=== PATIENT | male | born 1955 | race Caucasian/White ===

== ENCOUNTER 2016-12-10 14:29 | Emergency (ER) | payer OTHER ==
--- NOTE | 2016-12-10 17:05 | DIAGNOSTIC IMAGING REPORT ---
PROCEDURE: CTA THORAX WITH CONTRAST INDICATION: SHORTNESS OF BREATH TECHNIQUE: 100 ml of Isovue 370 was injected intravenously and axial images were obtained of the chest with 3D sagittal and coronal MIP reconstructions. COMPARISON: None. FINDINGS: Normal opacification of the pulmonary arterial tree without filling defect. The central pulmonary arteries are normal caliber. Thoracic aorta is normal caliber with trace atherosclerotic calcification. The great vessels demonstrate a normal branching pattern. Heart size is diffusely enlarged. No pericardial effusion. Moderate superior mediastinal, AP window, subcarinal and bilateral hilar adenopathy. The esophagus is normal in caliber without hiatal hernia. The thyroid gland is normal. Moderate size bilateral pleural effusions, right greater than left. Diffuse interstitial thickening bilaterally, particularly at the lung bases. 7 mm right lateral lower lobe subpleural solid lung nodule. 4 mm right lateral upper lobe ground-glass nodule (series 5 image 43). Deformities of multiple, healed bilateral rib fractures. The images obtained of the upper abdomen demonstrate trace perihepatic ascites and retrograde opacification of the IVC and hepatic veins. IMPRESSION: 1. No pulmonary embolus. 2. Cardiomegaly, diffuse interstitial thickening, and bilateral pleural effusions consistent with CHF and interstitial edema. 3. Two right lung nodules, nonspecific. Follow-up chest CT in 3 months is recommended. 4. Findings called to the emergency room.
--- NOTE | 2016-12-10 17:07 | ED ORDER SUMMARY ---
..... Patient: ADONIS DENNIS OrderSheet [facility] VisitID: [id number] [place] [address] 61y, M Registration Date/Time: 12/10/2016 ORDER SHEET Weight: 99.7 kg (stated) Allergies: Unknown ABX GENERAL ORDERS: Chest 2V Urgent (14:35 12/10/2016 [facility]) (Ack 14:52 TBergley) (15:14 TBergley) Human Services Manager (Continuous) (14:12/10/2016 [facility] (Ack 14:52 TBergley) (14:54 JSimbeck R.N.) UA-Culture if indicated Urgent (14:12/10/2016 [facility]) (Ack 14:52 TBergley) (15:48 JSimbeck R.N.) Cardiac Panel Stat (14:12/10/2016 [facility]) (Ack 14:52 TBergley) (14:54 JSimbeck R.N.) BNP Urgent (14:12/10/2016 PHnychinson DO) (Ack 14:52 TBergley) (14:54 JSimbeck R.N.) D-Dimer Urgent (14:12/10/2016 PHnychinson DO) (Ack 14:52 TBergley) (14:54 JSimbeck R.N.) Urine Drug Screen Urgent (14:12/10/2016 PHnychinson DO) (Ack 14:52 TBergley) (15:48 JSimbeck R.N.) TSH Urgent (14:12/10/2016 PHnychinson DO) (Ack 14:52 TBergley) (14:54 JSimbeck R.N.) Ethyl Alcohol Urgent (14:12/10/2016 PHnychinson DO) (Ack 14:52 TBergley) (14:54 JSimbeck R.N.) PT with INR Urgent (14:12/10/2016 PHnychinson DO) (Ack 14:52 TBergley) (14:54 JSimbeck R.N.) Lipase Urgent (14:35 12/10/2016 PHutchinson DO) (Ack 14:52 TBergley) (14:54 JSimbeck R.N.) Pulse oximeter (14:35 12/10/2016 son DO) (14:43 JSimbeck R.N.) EKG - ER Stat (14:35 12/10/2016 PHutchinson DO) (14:43 JSimbeck R.N.) Vitals (14:35 12/10/2016 PHutchinson DO) (14:43 JSimbeck R.N.) CTA Thorax w Cont (No) (GFR>60) (elevated d-dimer; dyspnea; ) Urgent (15:46 12/10/2016 chinson DO) (Ack 15:47 TBergley) (16:23 Angela) MEDICATION ORDERS: Lovenox Subcut 100 mg (NOW) (15:17 12/10/2016 utchinson ) (16:11 JSimbeck R.N.) NitroGLYCERIN Paste Topical 1.5 in. (NOW, to CW) (15:49 12/10/2016 PHutchinson DO) (16:11 JSimbeck R.N.) NitroGLYCERIN SL 0.4 mg (NOW, w/ s/s CHF) (15:49 12/10/2016 PHutchinson DO) (16:12 JSimbeck R.N.) IV FLUIDS: IV NS : initial bolus 500 mL (1000 mL/hr), then 250 mL/hr for X2 (NOW) (14:35 12/10/2016 PHutchinson DO) (14:54 JSimbeck R.N.) Lanoxin IV 0.125 mg (NOW) (15:17 12/10/2016 PHutchinson DO) (16:12 JSimbeck R.N.) Lasix IV 40 mg (NOW) (15:17 12/10/2016 PHutchinson DO) (Cancelled: Other17:07 chinson ) Diltiazem IV 10 mg (NOW) (15:17 12/10/2016 PHutchinson DO) (16:13 JSimbeck R.N.) Diltiazem IV 10 mg (NOW) (16:31 12/10/2016 PHutchinson DO) (16:37 Olivia Tapia) ORDER SHEET NOTES: [Electronically signed by Hoang Banerjee R.N. (18:46 12/10/2016)] [Electronically signed by Jack Murray DO (19:38 12/10/2016)] [Electronically locked/signed by Hoang Banerjee R.N. (18:46 12/10/2016)]
--- NOTE | 2016-12-10 17:07 | ED ORDER SUMMARY ---
..... Patient: ADONIS DENNIS OrderSheet [facility] VisitID: [id number] [place] [address] 61y, M Registration Date/Time: 12/10/2016 ORDER SHEET Weight: 99.7 kg (stated) Allergies: Unknown ABX GENERAL ORDERS: Chest 2V Urgent (14:35 12/10/2016 [facility]) (Ack 14:52 TBergley) (15:14 TBergley) Wildlife Biologist (Continuous) (14:12/10/2016 [facility]) (Ack 14:52 TBergley) (14:54 JSimbeck R.N.) UA-Culture if indicated Urgent (14:12/10/2016 [facility]) (Ack 14:52 TBergley) (15:48 JSimbeck R.N.) Cardiac Panel Stat (14:12/10/2016 [facility]) (Ack 14:52 TBergley) (14:54 JSimbeck R.N.) BNP Urgent (14:12/10/2016 PHazchinson DO) (Ack 14:52 TBergley) (14:54 JSimbeck R.N.) D-Dimer Urgent (14:12/10/2016 PHazchinson DO) (Ack 14:52 TBergley) (14:54 JSimbeck R.N.) Urine Drug Screen Urgent (14:12/10/2016 PHazchinson DO) (Ack 14:52 TBergley) (15:48 JSimbeck R.N.) TSH Urgent (14:12/10/2016 PHazchinson DO) (Ack 14:52 TBergley) (14:54 JSimbeck R.N.) Ethyl Alcohol Urgent (14:12/10/2016 PHazchinson DO) (Ack 14:52 TBergley) (14:54 JSimbeck R.N.) PT with INR Urgent (14:12/10/2016 PHazchinson DO) (Ack 14:52 TBergley) (14:54 JSimbeck R.N.) Lipase Urgent (14:35 12/10/2016 PHutchinson DO) (Ack 14:52 TBergley) (14:54 JSimbeck R.N.) Pulse oximeter (14:35 12/10/2016 son DO) (14:43 JSimbeck R.N.) EKG - ER Stat (14:35 12/10/2016 PHutchinson DO) (14:43 JSimbeck R.N.) Vitals (14:35 12/10/2016 PHutchinson DO) (14:43 JSimbeck R.N.) CTA Thorax w Cont (No) (GFR>60) (elevated d-dimer; dyspnea; ) Urgent (15:46 12/10/2016 chinson DO) (Ack 15:47 TBergley) (16:23 Angela) MEDICATION ORDERS: Lovenox Subcut 100 mg (NOW) (15:17 12/10/2016 utchinson ) (16:11 JSimbeck R.N.) NitroGLYCERIN Paste Topical 1.5 in. (NOW, to CW) (15:49 12/10/2016 PHutchinson DO) (16:11 JSimbeck R.N.) NitroGLYCERIN SL 0.4 mg (NOW, w/ s/s CHF) (15:49 12/10/2016 PHutchinson DO) (16:12 JSimbeck R.N.) IV FLUIDS: IV NS : initial bolus 500 mL (1000 mL/hr), then 250 mL/hr for X2 (NOW) (14:35 12/10/2016 PHutchinson DO) (14:54 JSimbeck R.N.) Lanoxin IV 0.125 mg (NOW) (15:17 12/10/2016 PHutchinson DO) (16:12 JSimbeck R.N.) Lasix IV 40 mg (NOW) (15:17 12/10/2016 PHutchinson DO) (Cancelled: Other17:07 chinson ) Diltiazem IV 10 mg (NOW) (15:17 12/10/2016 PHutchinson DO) (16:13 JSimbeck R.N.) Diltiazem IV 10 mg (NOW) (16:31 12/10/2016 PHutchinson DO) (16:37 Olivia Tapia) ORDER SHEET NOTES: [Electronically signed by Hoang Banereje R.N. (18:46 12/10/2016)] [Electronically signed by Jack Murray DO (19:38 12/10/2016)] [Electronically locked/signed by Hoang Banerjee R.N. (18:46 12/10/2016)]
--- NOTE | 2016-12-10 17:07 | ED CLINICAL REPORT ---
Clinical Report - Physicians/Mid Levels [facility] [address] [place] [address] 12/10/2016 14:30 Patient: ADONIS DENNIS Time Seen: 14:34. Arrived- By private vehicle. Historian- patient. Note: Patient has a primary care physician; PCP referred patient for evaluation. HISTORY OF PRESENT ILLNESS Chief Complaint: DYSPNEA and HISTORY OF CHRONIC OBSTRUCTIVE PULMONARY DISEASE and CONGESTIVE HEART FAILURE. This started about 2 weeks ago and is still present. It was gradual in onset and has been constant and waxing/waning. The dyspnea is described as moderate and is worsened by exertion and is improved by rest. The patient has had a cough, wheezing, dyspnea on exertion and mild foot swelling. He has had scant amounts of sputum. No blood tinged sputum or frankly bloody sputum. No fever or calf pain. Similar symptoms previously: None. Recent medical care: The patient was seen recently in a clinic. REVIEW OF SYSTEMS No muscle aches, sore throat, nasal discharge, sinus drainage or nausea. No vomiting, abdominal pain, diarrhea, black stools or bloody stools. No headache, fainting episodes, excessive urination, skin rash or enlarged lymph nodes. The patient has had difficulty with urination (chronic problems with BPH - unchanged). It has been similar to previous symptoms. All systems otherwise negative, except as recorded above. PAST HISTORY No history of renal failure, deep venous thrombosis or pulmonary embolism. Congestive heart failure. Chronic obstructive pulmonary disease. Seizures vs syncopal episode - only one such episode in his life. Benign prostatic hypertrophy. Chronic back pain. Surgeries: Adenoidectomy. Back surgery. Tonsillectomy. SOCIAL HISTORY Smoker- current status unknown. Occasional alcohol use. (has had likely alcohol withdrawal seizure). History of drug use: marijuana. FAMILY HISTORY Brother from "bronchitis" about 7 months ago. ADDITIONAL NOTES The nursing notes have been reviewed. PHYSICAL EXAM Vital Signs: 12/10/2016 14:37 BP: 137/93. HR: 155. RR: 32. O2 saturation: 97%. Temp: 97.7 F. Appearance: Alert. Patient in moderate distress. Distress appears respiratory. Eyes: Eyes normal inspection. No pale conjunctivae or scleral icterus. ENT: Pharynx normal. Uvula midline. No pharyngeal erythema. The mucous membranes are not dry. Neck: Normal inspection. No jugular venous distention. Neck supple. CVS: Tachycardia. Abnormal rhythm, which is irregularly irregular. Respiratory: Mild respiratory distress with accessory muscle use and tachypnea. Expiratory mild bilateral wheezes present. Mild rales present in the bases bilaterally. No decreased air movement or stridor. Abdomen: Soft and nontender. Obese. Back: Normal inspection. Skin: Skin warm and dry. Normal skin color. Normal skin turgor. (dry, smooth, bilateral lower leg skin). Extremities: Bilateral mild edema of the lower extremities. No calf tenderness. Neuro: Oriented X 3. No motor deficit. LABS, X-RAYS, AND EKG EKG: EKG time: (14:41). Atrial fibrillation (ventricular rate 150 - variable block). Non-specific ST segment / T wave abnormalities. Changes present when compared to prior EKG. The study has been interpreted contemporaneously by me. The EKG appears to be a good tracing. Rhythm Strip #1: Atrial fibrillation (narrow-complex) (ventricular rate 150's). Chest X-ray: Mild cardiomegaly with signs of vascular congestion. Views: PA and lateral. Technique: good. The X-rays were interpreted contemporaneously by me. CTA Pulmonary Arteries: IMPRESSION: 1. No pulmonary embolus. 2. Cardiomegaly, diffuse interstitial thickening, and bilateral pleural effusions consistent with CHF and interstitial edema. 3. Two right lung nodules, nonspecific. Follow-up chest CT in 3 months is recommended. The study was independently viewed by me, interpreted by the radiologist and discussed with the radiologist. Laboratory Tests: UA-Culture if indicated: (SUNNI: 12/10/2016 15:45) ( MsgRcvd 12/10/2016 16:05) Final results Test Result Flag Units (Reference) URINE COLOR YELLOW URINE APPEARANCE CLEAR URINE GLUCOSE NEGATIVE (NEGATIVE) URINE BILIRUBIN ICTOTEST NEGATIVE (NEGATIVE) URINE KETONE NEGATIVE (NEGATIVE) URINE SPECIFIC GRAVITY >= 1.030 (1.010-1.030) URINE PH 5.5 (5.0-8.0) URINE PROTEIN 1+ (NEGATIVE) URINE UROBILINOGEN 0.2 EU/dL (0.2-1.0) URINE NITRITE NEGATIVE (NEGATIVE) URINE BLOOD TRACE (NEGATIVE) URINE LEUK ESTERASE NEGATIVE (NEGATIVE) URINE RBC 1-3 rbc/hpf (0-1) URINE WBC 3-5 wbc/hpf (0-1) URINE EPITHELIAL CELLS 0-1 EPI/hpf (0-5) URINE BACTERIA NONE SEEN (NONE SEEN) URINE COMMENT CULT NOT INDICATED 1+ MUCUS3-5 Hyaline Casts/l.p.f.URINE CULTURES ARE SET-UP BASED ON THE FOLLOWING CRITERIA:POSITIVE NITRITEPOSITIVE LEUKOCYTE ESTERASEGREATER THAN 10 WHITE BLOOD CELLSMODERATE (2+) OR GREATER BACTERIA CBC w Diff: (SUNNI: 12/10/2016 14:45) ( MsgRcvd 12/10/2016 14:59) Final results Test Result Flag Units (Reference) WHITE BLOOD COUNT 10.2 K/uL (4.5-11.5) RED BLOOD COUNT 4.76 M/uL (4.50-5.90) HEMOGLOBIN 11.8 L gm/dL (13.5-17.5) HEMATOCRIT 36.9 L % (41.0-53.0) MEAN CELL VOLUME 78 L fL (80-100) MEAN CORPUSCULAR HGB 25 L pg (26-34) MEAN CORPUSCULAR HGB CONC 32 g/dL (31-37) RED CELL DISTRIBUTION WIDTH 18.0 H % (11.6-14.8) PLATELET COUNT 379 K/uL (150-400) NEUTROPHIL % 74.4 % (50-75) LYMPH % 17.5 L % (25-40) MONO % 5.0 % (3-14) EOSINOPHIL % 2.6 % (0-4) BASOPHIL % 0.5 % (0-2) PT with INR: (SUNNI: 12/10/2016 14:45) ( MsgRcvd 12/10/2016 15:07) Final results Test Result Flag Units (Reference) INR 1.1 (0.8-1.2) Low Intensity Therapy: INR 1.5-2.0 PT range 18.5-23.1Mod.Intensity Therapy: INR 2.0-3.0 PT range 23.1-31.5High Intensity Therapy: INR 2.5-3.5 PT range 27.4-35.5High Intensity Therapy 2: INR 3.0-4.0 PT range 31.5-39.3 D-DIMER QUANTITATIVE 1.72 H ug/mLFEU (0.27-0.52) The primary value of this quantitative assay relates toits negative predictive value (i.e. exclusion) of pulmonaryembolism/deep vein thrombosis/DIC.Elevated levels of d-dimer may also occur with:, age, cancer, inflammation, liver disease,post-op, infection, hematoma, coronary disease, peripheralarteriopathy, bleeding disorders and thrombolytic treatment.Results should be correlated with other clinical andradiological data.Testing Methodology: Latex Immunoassay Urine Drug Screen: (SUNNI: 12/10/2016 15:45) ( MsgRcvd 12/10/2016 16:07) Final results Test Result Flag Units (Reference) AMPHETAMINE/METHAMPHETAMINE POSITIVE H (NEGATIVE) BARBITURATE NEGATIVE (NEGATIVE) BENZODIAZEPINE NEGATIVE (NEGATIVE) CANNABINOID POSITIVE H (NEGATIVE) COCAINE NEGATIVE (NEGATIVE) ECSTASY NEGATIVE (NEGATIVE) METHADONE NEGATIVE (NEGATIVE) OPIATE NEGATIVE (NEGATIVE) The urine drug screen is a qualitative screening test fordrug overdose and abuse. All screen results should beconsidered as presumptive.Drugs screened for are as follows:BenzodiazepinesCocaineAmphetamines/MetamphetaminesTHC (Tetrahydrocannabinol)OpiatesBarbituratesEcstasyMethadonePositive results are unconfirmed. For confirmation, notifythe lab for the specimen to be sent to the reference lab.All confirmations must be performed by a differentmethodology.The ingestion of natural herbal and plant productscontaining Ephedra/Ephedra metabolites can produce in urineone or more substances capable of cross reacting withamphetamine/methamphetamine immunoassays. These testsprovide a preliminary result only. A more specificalternative chemical method must be used to obtain aconfirmed analytical result. BNP: (SUNNI: 12/10/2016 14:45) ( MsgRcvd 12/10/2016 15:22) Final results Test Result Flag Units (Reference) B-TYPE NATRIURETIC PEPTIDE 156 H pg/ml (5-100) Lipase: (SUNNI: 12/10/2016 14:45) ( MsgRcvd 12/10/2016 16:07) Final results Test Result Flag Units (Reference) LIPASE 81 U/L (73-393) ETHYL ALCOHOL < 3.0 L mg/dL (3-10) THYROID STIMULATING HORMONE 1.416 uIU/mL (0.30-3.74) CHEM 13 PANEL: (SUNNI: 12/10/2016 14:45) ( MsgRcvd 12/10/2016 16:09) Final results Test Result Flag Units (Reference) GLUCOSE 114 H mg/dL (70-110) BUN 20 H mg/dL (7-18) CREATININE 1.0 mg/dL (0.6-1.3) Estimated GFR >60 mL/min Estimated GFR- >60 mL/min Note: Persistent reduction over 3 months in eGFR<60 mL/min/1.73 m2 defines CKD. Patients with eGFR values>=60 mL/min/1.73 m2 may also have CKD if evidence ofpersistent proteinuria. Additional information may be foundat www.kidney.org. SODIUM 141 mmol/L (136-145) POTASSIUM 3.9 mmol/L (3.5-5.1) CHLORIDE 104 mmol/L (98-107) CARBON DIOXIDE 26 mmol/L (21-32) CALCIUM 8.6 mg/dL (8.5-10.1) TOTAL PROTEIN 7.1 g/dL (6.4-8.2) ALBUMIN 3.1 L g/dL (3.3-5.0) BILIRUBIN, TOTAL 0.6 mg/dL (0.0-1.0) ALKALINE PHOSPHATASE 99 U/L (46-116) AST (SGOT) 26 U/L (15-37) ALT (SGPT) 23 U/L (12-78) MAGNESIUM 1.6 L mg/dL (1.8-2.4) CPK 343 H U/L (24-260) CK-MB 26.3 H ng/mL (0.5-3.2) %CKMB 7.7 H % (0.0-4.0) TROPONIN I 0.08 ng/mL (0.00-1.5) TROPONIN REFERENCE RANGE:<0.1 NEGATIVE0.1-1.5 INDETERMINANT>1.5 POSITIVE . Pulse Oximetry: 12/10/2016 14:37 O2 saturation: 97%. (FIO2 - room air). Interpretation: normal. PROGRESS AND PROCEDURES Course of Care: Lasix 40 mg IVP given. Lovenox 100 mg subQ given. Digoxin 0.125 mg IVP given. Diltiazem 10 mg IVP given. After long discussion of risks and benefits of admission and further work up and treatment, pt adamantly refuses admission. I have done my best to assist him with rate control and will Rx initial ongoing medications for atrial fibrillation. He is informed that methamphetamines can cause his rapid HR and is strongly discouraged from continuing their use. He states that he will f/u closely with pcp and / or return to emergency for new or worsening symptoms or any concerns. Patient/family counseled. Old ED records reviewed. Disposition: Discharged home. Condition: guarded and improved. CLINICAL IMPRESSION Acute mild left ventricular congestive heart failure New onset atrial fibrillation with uncontrolled rate. Pulmonary nodule right upper lobe and right lower lobe. Chronic substance abuse- tobacco (cigarettes), marijuana, methamphetamines with anxiety. Moderate chronic anemia. INSTRUCTIONS Do not smoke. Seek medical help to quit smoking. Warnings: Further evaluation is necessary in order to recheck abnormal lab, obtain test results, conduct further tests and assess the possibility of serious illness (YOU WILL NEED A REPEAT / FOLLOW UP CHEST CT SCAN IN ABOUT 3 MONTHS TO FOLLOW LUNG NODULES). It is very important to follow up with a physician. GENERAL WARNINGS: Return or contact your physician immediately if your condition worsens or changes unexpectedly, if not improving as expected, or if other problems arise. SPECIFICALLY, return if you develop chest pain, difficulty breathing, excessive fatigue or a fluttering sensation in the chest. Your Current Medications: CONTINUE TAKING THE FOLLOWING MEDICATIONS: Flomax Oral. Gabapentin Oral. Ibuprofen Oral. Prescription Medications: Norvasc 5 mg: Take 1 orally every 24 hours. Dispense fifteen (15). No refills. Substitution is permissible. Digoxin 0.25 mg: Take 1 tab orally every 24 hours. Dispense fifteen (15). No refills. Diltiazem 120 mg: Take 1 orally every 24 hours. Dispense fifteen (15). No refills. Xeralto 20 mg Disp #15 sig 1 po QD. Follow-up: Follow up with your doctor in about two hours. AMA warnings: Oriented to person, place, and time. Gives appropriate answers and rational explanation of refusal of care. Speaks coherently. No signs of psychosis, auditory hallucinations, delusional thinking, suicidal ideations or slurred speech. No tangential thinking, visual hallucinations or homicidal ideations. Abstract thinking intact. Clinical Impression: the patient has the capacity to make decisions regarding the medical care offered. The suspected diagnosis, based upon the initiated medical screening exam, is Congestive heart failure, COPD and new onset atrial fibrillation - possible other problems that need to be further worked up to rule in or out and has been discussed with the patient. Acknowledges understanding of the reasons for recommendations regarding medical treatment, medical tests, admission to facility and further observation. The recommended medical care being refused is Admission for further work up and observation and has been discussed with the patient. The risks of refusing recommended care that were disclosed are and permanent mental impairment. Discharge instructions were provided. REFUSAL OF CARE STATEMENT (patient to review and sign in discharge instructions): I have read this paragraph. I understand that a doctor at this hospital wants to give me certain medical care. The doctor explained that care to me, and I understand what that care is. The doctor also explained to me what could happen to me if I leave here without having that care, and I understand what he said. I know that I am welcome to return to this hospital at any time to receive the recommended care or any other care that I may need at any time, regardless of my ability to pay for such care. (Electronically signed by Jack Murray DO 12/10/2016 19:38)
--- NOTE | 2016-12-10 17:07 | ED NURSING NOTES ---
Clinical Report - [facility] [place] [address] 12/10/2016 14:30 Patient: ADONIS DENNIS TRIAGE Triage time 14:35. Acuity: LEVEL 2. Chief Complaint: (SOB worsening over the past 2 weeks, today his HR has been rapid. He was sent here by the walk in clinic.). SEPSIS SCREEN: Sepsis Screen. Negative (no infection suspected/documented). RAINER COMA SCORE: Rainer Coma Scale: 15- eyes open spontaneously (4); best verbal response- oriented x 4 (5); best motor response- obeys commands (6). --14:47 Hoang Banerjee R.N. 14:37 12/10/16. BP: 137/93 (regular adult cuff) taken on the left arm, while lying. HR: 155. RR: 32. O2 saturation: 97% on room air. Temp: 97.7 F (oral). --14:47 Hoang Banerjee R.N. 14:37 12/10/16. Pain level now: 10/10. --18:43 Hoang Banerjee R.N. Weight: 99.7 kg stated. Height/Length: 69 inches Per Patient. BMI: 32.5. --14:46 Hoang Banerjee R.N. Medications Flomax Oral. --14:46 Hoang Banerjee R.N. Gabapentin Oral. --14:47 Hoang Banerjee R.N. Ibuprofen Oral. --14:47 Hoang Banerjee R.N. Allergies Unknown ABX. --14:46 Hoang Banerjee R.N. History Arrived by private vehicle. Historian: patient. SOCIAL HX: Heavy tobacco smoker (cigarette)- 1 pack per day. Occasional alcohol use. History of drug use: marijuana. ABUSE ASSESSMENT: No report of abuse. --14:47 Hoang Banerjee R.N. PROBLEMS: Benign Prostatic Hypertrophy. Seizure Disorder. Chronic Back Pain. COPD - Chronic Obstructive Pulmonary Disease. Congestive Heart Failure. --14:43 Hoang Banerjee R.N. ADDITIONAL SURGERIES: Adenoidectomy. Back Surgery. Tonsillectomy. --14:43 Hoang Banerjee R.N. Interventions ID band on patient. To treatment room. --14:47 Hoang Banerjee R.N. PHYSICAL ASSESSMENT Ambulatory to room. GENERAL / NEURO / PSYCH: Alert. Oriented X 4. Appears anxious and in distress. HEENT: Mucous membranes are pink. RESPIRATORY: Moderate respiratory distress. The patient can speak in full sentences. Accessory muscle use. Left upper and anterior chest wall tenderness. Expiratory and inspiratory bilateral wheezes diffusely. CVS: Cardiac rhythm: atrial fibrillation with rapid ventricular response. Capillary refill less than 2 seconds. GI / : Abdomen soft and nontender. Bowel sounds within normal limits. SKIN: Skin is warm and dry. Normal skin turgor. --14:49 Hoang Banerjee R.N. NURSING PROGRESS NOTES environmental monitoring specialist, pulse oximeter and NIBP monitor placed on patient; personnel monitor- Lead II and V1; monitor alarms on. Patient gowned. Head of bed elevated. Reassurance given. Two patient identifiers checked. Call light placed in reach. Bed placed in lowest position. Brakes of bed on. Patient ready for evaluation- chart flagged. --14:50 Hoang Banerjee R.N. 14:45 12/10/2016 Site #1 started via IV in the left antecubital space with an 20g angiocath, with aseptic technique and good blood return; two attempts. Blood drawn: rainbow set. Labeled in the presence of the patient and sent to the lab. Saline lock flushed with 10 mL saline (by NANY Mandel). --14:51 Hoang Banerjee R.N. 14:54 12/10/2016 Started bag #1 1000 mL IV Fluids IV NS (Saline); bolus of 500 mL over 30 minute(s) then at 250 mL/hr over 2 hour(s) via site #1 via IV pump. Allergies verified and confirmed 5 rights. IV patency established. IV site checked: no pain, redness, or swelling. IV flushed thoroughly pre- and post-medication administration. --14:54 Hoang Banerjee R.N. Patient transported to radiology by stretcher. --15:07 Hoang Banerjee R.N. 15:12/10/16. EKG time: (1441 PM). EKG was ordered, performed by a tech and shown to the ED physician. --15:09 Nyla Rice 15:16 12/10/16. Patient returned from radiology by stretcher with tech. --15:17 Hoang Banerjee R.N. 16:00 12/10/2016 Lovenox (Enoxaparin Sodium) Subcutaneous 100 mg given. Given in the left abdomen. Allergies verified and confirmed 5 rights. --16:11 Hoang Banerjee R.N. 16:00 12/10/2016 NITROGLYCERIN PASTE Topical Paste 1.5 inch. Applied to the left chest. Allergies verified and confirmed 5 rights. --16:11 Hoang Banerjee R.N. 16:00 12/10/2016 Nitroglycerin SL Tablets 0.4 mg given. Allergies verified and confirmed 5 rights. --16:12 Hoang Banerjee R.N. 16:01 12/10/2016 Diltiazem IVP 10 mg given over 2 minute(s) via site #1. Allergies verified and confirmed 5 rights. IV patency established. IV site checked: no pain, redness, or swelling. IV flushed thoroughly pre- and post-medication administration. IVP given by RN. --16:13 Hoang Banerjee R.N. 16:04 12/10/2016 Lanoxin IVP 0.125 mg given over 2 minute(s) via site #1. Allergies verified and confirmed 5 rights. IV patency established. IV site checked: no pain, redness, or swelling. IV flushed thoroughly pre- and post-medication administration. IVP given by RN. --16:12 Hoang Banerjee R.N. Patient transported to CT by stretcher with tech. --16:15 Hoang Banerjee R.N. Patient returned from CT by stretcher with tech. --16:29 Hoang Banerjee R.N. 16:35 12/10/2016 Diltiazem IVP 10 mg given over 2 minute(s) via site #1. Allergies verified and confirmed 5 rights. IV patency established. IV site checked: no pain, redness, or swelling. IV flushed thoroughly pre- and post-medication administration. IVP given by RN. --16:37 Hoang Banerjee R.N. 15:00 12/10/16. BP: 122/95. HR: 155. RR: 25. O2 saturation: 98% on nasal cannula at 2 liters/minute. Pain level now: 09/09. --16:43 Hoang Banerjee R.N. 15:30 12/10/16. BP: 145/115. HR: 155. RR: 27. O2 saturation: 100% on nasal cannula at 2 liters/minute. Pain level now: 09/09. --16:43 Hoang Banerjee R.N. 16:10 12/10/16. BP: 112/55. HR: 132. RR: 23. O2 saturation: 100% on nasal cannula at 2 liters/minute. --16:44 Hoang Banerjee R.N. 16:25 12/10/16. BP: 124/85. HR: 129. RR: 24. O2 saturation: 95% on nasal cannula at 2 liters/minute. --16:45 Hoang Banerjee R.N. 16:40 12/10/16. BP: 131/62. HR: 103. RR: 25. O2 saturation: 96% on nasal cannula at 2 liters/minute. --16:45 Hoang Banerjee R.N. 17:15 12/10/2016 Site #1 removed upon discharge. Bandage applied. --18:45 Hoang Banerjee R.N. 17:15 12/10/2016 IV Fluids IV NS Discontinued: bag #1 upon discharge. Total amount infused: 800 mL. IV patency established. IV site checked: no pain, redness, or swelling. IV flushed thoroughly. --18:45 Hoang Banerjee R.N. DISPOSITION / DISCHARGE 17:22 12/10/16. Departure time: 1718. Cardiac rhythm: atrial flutter. Condition at departure: improved. ( Pt signed AMA papers because he refused admit for treatment.). No learning barriers present. Discharge instructions provided and reviewed with the patient. Reviewed warnings. Reviewed medication(s). Treatments reviewed. Patient verbalized understanding. Written instructions provided in [employer]. The patient was discharged by the physician. He was discharged home. He left the Emergency Department ambulatory and via private vehicle. Patient driving. --17:23 Hoang Banerjee R.N. 17:00 12/10/16. BP: 150/98 (regular adult cuff) taken on the right arm, while sitting. HR: 122. RR: 24. O2 saturation: 95% on room air. Temp: 97.7 F (oral). Pain level now: 0/10. --17:23 Hoang Banerjee R.N. Locked/Released at 12/10/2016 18:46 by Hoang Banerjee R.N.
--- NOTE | 2016-12-10 17:17 | DIAGNOSTIC IMAGING REPORT ---
PROCEDURE: XR CHEST 2 VIEW INDICATION: SHORTNESS OF BREATH TECHNIQUE: Two views. COMPARISON: 12/20/2010 FINDINGS: The heart size is not enlarged. Normal aortic contour. No significant central venous congestion. Diffuse coarsening of the interstitial markings and thickening of the fissures. Noa B lines visible laterally in both lung bases. Small bilateral pleural effusions. No pneumothorax. Intact osseous structures. IMPRESSION: 1. Changes of mild CHF and interstitial edema.
--- NOTE | 2016-12-10 19:38 | ED MED RECONCILIATION SUMMARY ---
Patient: ADONIS DENNIS Medication Reconciliation Report [facility] VisitID: [id number] [place] [address] 61y, M Registration Date/Time: 12/10/2016 Weight: 99.7 kg Height/Length: 69 in. BMI: 32.5 ALLERGIES: Unknown ABX The patient's Home Medications are listed below: CONTINUE TAKING THE FOLLOWING MEDICATIONS: Flomax Oral Gabapentin Oral Ibuprofen Oral The source(s) of the original Home Medication information: Not obtained. The following Medications were given to the patient in the Emergency Department: IV NS IV Fluids bolus 500 mL over 30 minute(s), then 250 mL/hr, administered: 12/10/2016 2:54:00 PM Lovenox [Subcutaneous] Subcutaneous 100 mg, administered: 12/10/2016 4:00:00 PM NITROGLYCERIN PASTE [TOPICAL] Topical 1.5 in., administered: 12/10/2016 4:00:00 PM Nitroglycerin [SL] SL 0.4 mg, administered: 12/10/2016 4:00:00 PM Lanoxin [IVP] IVP 0.125 mg, administered: 12/10/2016 4:04:00 PM Diltiazem [IVP] IVP 10 mg, administered: 12/10/2016 4:01:00 PM Diltiazem [IVP] IVP 10 mg, administered: 12/10/2016 4:35:00 PM The following Medications were prescribed to the patient: Xeralto 20 mg Disp #15sig 1 po QD. -- Jack Murray DO Norvasc 5 mg: Take 1 orally every 24 hours. Dispense fifteen (15). No refills. Substitution is permissible. -- Jack Murray DO Digoxin 0.25 mg: Take 1 tab orally every 24 hours. Dispense fifteen (15). No refills. -- Jack Murray DO Diltiazem 120 mg: Take 1 orally every 24 hours. Dispense fifteen (15). No refills. -- Jack Murray DO
--- NOTE | 2016-12-10 19:38 | ED MAR SUMMARY ---
..... Medication Administration Record [facility] [address] [place] [address] Patient: ADONIS DENNIS Visit ID: [id number] 61y, M Weight: 99.7 kg Height/Length: 69 in BMI: 32.5 ALLERGIES: Unknown ABX Start 14:54 12/10/2016 Hoang Banerjee R.N., Stop 17:15 12/10/2016 Hoang Banerjee R.N. Medication Administered: IV NS (SALINE), Dose: IV Fluids over 2 hour(s), Rate: 250 mL/hr, Bolus: 500 mL over 30 minute(s), Dispensed: 1000 mL bag, Site: #1 left AC. Medication Ordered: IV NS : initial bolus 500 mL (1000 mL/hr), then 250 mL/hr for X2 (NOW). Given 16:00 12/10/2016 Hoang Banerjee R.N. Medication Administered: LOVENOX [SUBCUTANEOUS] (ENOXAPARIN SODIUM), Dose: 100 mg Subcutaneous. Medication Ordered: Lovenox Subcut 100 mg (NOW). Given 16:00 12/10/2016 Hoang Banerjee R.N. Medication Administered: NITROGLYCERIN PASTE [TOPICAL], Dose: 1.5 in. Paste Topical. Medication Ordered: NitroGLYCERIN Paste Topical 1.5 in. (NOW, to CW). Given 16:00 12/10/2016 Hoang Banerjee R.N. Medication Administered: NITROGLYCERIN [SL], Dose: 0.4 mg Tablets SL. Medication Ordered: NitroGLYCERIN SL 0.4 mg (NOW, w/ s/s CHF). Given 16:01 12/10/2016 Hoang Banerjee R.N. Medication Administered: DILTIAZEM [IVP], Dose: 10 mg IVP over 2 minute(s), Site: #1 left AC. Medication Ordered: Diltiazem IV 10 mg (NOW). Given 16:04 12/10/2016 Hoang Banerjee R.N. Medication Administered: LANOXIN [IVP], Dose: 0.125 mg IVP over 2 minute(s), Site: #1 left AC. Medication Ordered: Lanoxin IV 0.125 mg (NOW). Given 16:35 12/10/2016 Hoang Banerjee R.N. Medication Administered: DILTIAZEM [IVP], Dose: 10 mg IVP over 2 minute(s), Site: #1 left AC. Medication Ordered: Diltiazem IV 10 mg (NOW).
--- NOTE | 2016-12-10 19:38 | ED MED RECONCILIATION SUMMARY ---
Patient: ADONIS DENNIS Medication Reconciliation Report [facility] VisitID: [id number] [place] [address] 61y, M Registration Date/Time: 12/10/2016 Weight: 99.7 kg Height/Length: 69 in. BMI: 32.5 ALLERGIES: Unknown ABX The patient's Home Medications are listed below: CONTINUE TAKING THE FOLLOWING MEDICATIONS: Flomax Oral Gabapentin Oral Ibuprofen Oral The source(s) of the original Home Medication information: Not obtained. The following Medications were given to the patient in the Emergency Department: IV NS IV Fluids bolus 500 mL over 30 minute(s), then 250 mL/hr, administered: 12/10/2016 2:54:00 PM Lovenox [Subcutaneous] Subcutaneous 100 mg, administered: 12/10/2016 4:00:00 PM NITROGLYCERIN PASTE [TOPICAL] Topical 1.5 in., administered: 12/10/2016 4:00:00 PM Nitroglycerin [SL] SL 0.4 mg, administered: 12/10/2016 4:00:00 PM Lanoxin [IVP] IVP 0.125 mg, administered: 12/10/2016 4:04:00 PM Diltiazem [IVP] IVP 10 mg, administered: 12/10/2016 4:01:00 PM Diltiazem [IVP] IVP 10 mg, administered: 12/10/2016 4:35:00 PM The following Medications were prescribed to the patient: Xeralto 20 mg Disp #15sig 1 po QD. -- Jack Murray DO Norvasc 5 mg: Take 1 orally every 24 hours. Dispense fifteen (15). No refills. Substitution is permissible. -- Jack Murray DO Digoxin 0.25 mg: Take 1 tab orally every 24 hours. Dispense fifteen (15). No refills. -- Jack Murray DO Diltiazem 120 mg: Take 1 orally every 24 hours. Dispense fifteen (15). No refills. -- Jack Murray DO
--- NOTE | 2016-12-10 19:38 | ED DISCHARGE INSTRUCTIONS ---
Patient: ADONIS DENNIS General Instructions [facility] VisitID: [id number] [place] [address] 61y, M Registration Date/Time: 12/10/2016 Acute mild left ventricular congestive heart failure New onset atrial fibrillation with uncontrolled rate. Pulmonary nodule right upper lobe and right lower lobe. Chronic substance abuse- tobacco (cigarettes), marijuana, methamphetamines with anxiety. Moderate chronic anemia. INSTRUCTIONS Do not smoke. Seek medical help to quit smoking. Warnings: Further evaluation is necessary in order to recheck abnormal lab, obtain test results, conduct further tests and assess the possibility of serious illness (YOU WILL NEED A REPEAT / FOLLOW UP CHEST CT SCAN IN ABOUT 3 MONTHS TO FOLLOW LUNG NODULES). It is very important to follow up with a physician. GENERAL WARNINGS: Return or contact your physician immediately if your condition worsens or changes unexpectedly, if not improving as expected, or if other problems arise. SPECIFICALLY, return if you develop chest pain, difficulty breathing, excessive fatigue or a fluttering sensation in the chest. Your Current Medications: CONTINUE TAKING THE FOLLOWING MEDICATIONS: Flomax Oral. Gabapentin Oral. Ibuprofen Oral. Prescription Medications: Norvasc 5 mg: Take 1 orally every 24 hours. Dispense fifteen (15). No refills. Substitution is permissible. Digoxin 0.25 mg: Take 1 tab orally every 24 hours. Dispense fifteen (15). No refills. Diltiazem 120 mg: Take 1 orally every 24 hours. Dispense fifteen (15). No refills. Xeralto 20 mg Disp #15 sig 1 po QD. Follow-up: Follow up with your doctor in about two hours. AMA warnings: Oriented to person, place, and time. Gives appropriate answers and rational explanation of refusal of care. Speaks coherently. No signs of psychosis, auditory hallucinations, delusional thinking, suicidal ideations or slurred speech. No tangential thinking, visual hallucinations or homicidal ideations. Abstract thinking intact. Clinical Impression: the patient has the capacity to make decisions regarding the medical care offered. The suspected diagnosis, based upon the initiated medical screening exam, is Congestive heart failure, COPD and new onset atrial fibrillation - possible other problems that need to be further worked up to rule in or out and has been discussed with the patient. Acknowledges understanding of the reasons for recommendations regarding medical treatment, medical tests, admission to facility and further observation. The recommended medical care being refused is Admission for further work up and observation and has been discussed with the patient. The risks of refusing recommended care that were disclosed are and permanent mental impairment. Discharge instructions were provided. REFUSAL OF CARE STATEMENT (patient to review and sign in discharge instructions): I have read this paragraph. I understand that a doctor at this hospital wants to give me certain medical care. The doctor explained that care to me, and I understand what that care is. The doctor also explained to me what could happen to me if I leave here without having that care, and I understand what he said. I know that I am welcome to return to this hospital at any time to receive the recommended care or any other care that I may need at any time, regardless of my ability to pay for such care. ADDITIONAL INFORMATION Heart Failure (Left Or Right Sided) The heart is a large muscle that pumps blood throughout the body. Blood carries oxygen to all the organs, muscles, and skin of your body. After the body takes the oxygen out of the blood, the blood returns to the heart. The right side of the heart collects that blood and pumps it to the lungs to receive fresh oxygen. This oxygen-rich blood from the lungs then returns to the left side of the heart where it is pumped back out to the rest of the body, starting the process all over. Heart Failure (HF) occurs when the heart muscle is weakened. This affects the pumping action of the heart. When the right side of the heart is weakened, it cant handle the blood it is receiving from the rest of the body. This blood returns to the heart through veins. When too much pressure builds up in the veins fluid leaks out into the tissues. [place] then causes that fluid to spread to those parts of the body that are the lowest. Therefore, one of the first symptoms of HF include swelling in the feet and ankles. If the condition worsens, the swelling can even go up past the knees. When the left side of the heart is weakened, it cant handle the blood it is receiving from the lungs. Pressure then builds up in the veins of the lungs, causing fluid to leakinto the lung tissues. This may be referred to as congestive heart failure.This causes you to feel short of breath, weak, or dizzy. These symptoms are often worse with exertion, such as climbing stairs or walking up hills. Lying flat is uncomfortable and can make your breathing worse. This may make sleeping difficult and force you to useextra pillows to sleep well. This condition may not only affect the right side of the heart or only the left side. While it may have started on one side, it often affects both sides. Causes of heart failure Coronary artery disease Prior heart attack (also known as acute myocardial infarction, or AMI) High blood pressure Damaged heart valve Diabetes Obesity Cigarette smoking Alcohol abuse Treatment Heart failure is a chronic condition. There is no cure. The purpose of medical treatment is to improve the pumping action of the heart, and remove excess water from the body. A number of medications can help achieve this goal,improvesymptoms and prevent the heart from becoming weaker. Another major goal is to better treat the caues of heart failure, such as diabetes, high blood pressure, and your lifestyle. Home care Check your weight every day. A sudden increase in weight gain could mean worsening heart failure. Use the same scale every day Weigh yourself at the same time every day Make sure the scale is on the floor, not on a rug Keep a record of your weight every day, so your doctor can see it. If you are not given a log sheet for this, keep a separate journal for this purpose. Reduce your salt (sodium) intake. Avoid high-salt foods (olives, pickles, smoked meats, salted potato chips, etc.). Do not add salt to your food at the table and use only small amounts of salt when cooking. Follow your doctors recommendations about how much fluid intake is safe. Stop smoking. Reduce alcohol use. Lose weight if you are overweight. The excess weight adds a lot of stress on the workload of the heart. Stay active. Talk to your doctor about an exercise program that is safe for your heart. Keep your feet elevated to reduce swelling. Ask your doctor about support hose as a preventive treatment for daytime leg swelling. Besides taking your medicine as instructed, an important part of treatment includes lifestyle changes such as diet, physical activity, stopping smoking, and weight control. Improve your diet. Often in the hospital, people are given a "heart healthy diet." This includes more fresh foods, lower fat, less processed foots, and lower salt. Follow-up care Follow up with your doctor as directed by our staff. Make sure to keep any appointments that were made for you as this can help better control heart failure. If an X-ray was done, you will be notified of any new findings that may affect your care. Call 911 Call 911 if you: Become severely short of breath Feel lightheaded, or feel like you might pass out or faint Have chest pain or discomfort that is different than usual, the medicines your doctor told you to use for this do not help, or the pain lasts longer than 10 to 15 minutes Suddendly develop a rapid heart rate When to seek medical care Get prompt medical attention if you have any of the following signs of worsening heart failure: Sudden weight gain (3or more pounds in one day or5or more pounds in one week) Trouble breathing not related to being active New or increased swelling of your legs or ankles Swelling or pain in your abdomen Breathing trouble at night (waking up short of breath, needing more pillows to breathe) Frequent coughing that doesnt go away Feeling much more tired than usual Drug Abuse Use and abuse of such drugs as marijuana, amphetamines (speed, crank), cocaine, heroin or prescription pain medicines (Vicodin, codeine), sedatives and sleeping pills (Valium, Klonopin), PCP, mescaline and LSD may lead to addiction or dependence. Once this occurs, you are at greater risk for any of the following: Craving for the drug and unable to stop using the drug even though you think you want to stop (psychological dependence) Drug withdrawal symptoms if you stop taking the drug (physical dependence) Loss of your job or your family Arrest, conviction and prison sentence for possession of an illegal substance or for driving under the influence of such a substance Accidental injuries to yourself or others while you are under the influence of the drug (in a car or at home). HIV infection (much greater risk if you use IV drugs) Other sexually transmitted diseases (herpes, chlamydia, gonorrhea and others) Severe and fatal infection of the heart valves (if you use IV drugs) Stroke, heart attack, hepatitis B or C, kidney failure from overdose Home Care: Admit you have a drug problem. Ask for help from your family and close friends. Seek professional help. This could be in the form of individual psychotherapy or counseling or an outpatient, inpatient, or residential drug treatment program. Join a self-help group for drug abuse. Avoid friends who abuse drugs themselves or tempt you to continue abusing drugs. Eat a balanced diet and begin a regular exercise program. Follow Up with your doctor or as advised by our staff. Contact one of the resources below for help. National [place] on Alcoholism and Drug Dependence www.ncadd.org 741-388-ZNEK Narcotics Anonymous www.na.org 410-581-3136 National Alcohol and Substance Abuse Information Center (for referral to treatment programs) www.addictionXRONet 851-282-4616 Get Prompt Medical Attention if any of the following occur: Agitation, anxiety, unable to sleep Unintended weight loss (more than 10 to 15 pounds over 3 months) Seizure Chest pain Fever of 100.4F (38C) or higher, or as directed by your healthcare provider Excess drowsiness or inability to be awakened Shortness of breath Slow breathing under 8 breaths per minute Cough with colored sputum Redness, swelling or tenderness at an injection site Marijuana Abuse Marijuana is the most widely used illegal drug in the [place]. It is called by various names such as pot, weed, blunts, grass, reefer, ganja, hash, hashish. It is usually smoked but can be mixed with foods or brewed as a tea. It is sometimes sold with PCP (Denis Dust) or amphetamine mixed in it. These drugs can cause other harmful side effects. Marijuana can cause the following effects: Changes in mood (stimulated, happy, drowsy, depressed, paranoid) Hallucinations Increased heart rate and blood pressure Increased appetite Time distortion, difficulty concentrating, impaired memory Lung damage (similar to cigarettes with chronic cough, wheezing, frequent colds and bronchitis) You can become psychologically dependent on marijuana. That means the craving to use the drug is emotional or psychological rather than due to physical withdrawal. Is Marijuana Running Your Life? Here are some of the signs: Relying on marijuana to feel good, forget problems, deal with stress or to relax Wanting to be alone most of the time or only with others who use drugs Losing interest in things that used to be important Changes in school or job performance or attendance Spending a lot of time thinking about how to get marijuana Stealing or selling your things so you can buy marijuana Unable to stop using even though you may want to quit Increasing anxiety, anger,or depression Sleeping too much, changes in eating habits (weight loss or gain) Needing to use more to get the same effect Home Care Once you have become addicted to any drug, quitting is hard to do. Most people find they can't quit without help. So, dont try to do this alone. Talk to someone you trust who can support you. Seek professional help. Avoid people and places where drugs are used. That only increases the temptation to use. Follow Up with your doctor or as advised by our staff. For more information or a referral to a treatment center in your area, contact: Your local mental health center or the National Alcohol and Substance Abuse Information Center (695)-852-7552 www.addictioncareS[employer].StudioEX National [place] on Alcoholism and Drug Dependence 745-789-JZCO www.ncadd.org Marijuana Anonymous 303-284-8479 www.marijuana-anonymous.org Get Prompt Medical Attention if any of the following occur: You feel extreme depression, fear, anxiety, or anger toward yourself or others You feel out of control You feel that you may try to harm yourself or another Anemia [Type Not Specified, Adult] Red blood cells carry oxygen to the tissues of the body. Anemia is a condition where the size or number of red blood cells in the body is reduced. Iron is needed to make red blood cells. The most common cause of anemia is iron deficiency. This may be due to: i) Blood loss (heavy menstrual periods or bleeding from the stomach or intestines); or, ii) Not eating enough iron-containing foods. Other causes of anemia include certain vitamin deficiencies, chronic kidney disease or certain other chronic illnesses. Anemia causes a feeling of being tired and run down. When anemia becomes severe, the skin becomes pale and there is shortness of breath with exertion. Headaches, dizziness, leg cramps with exertion, drowsiness and fatigue are other common symptoms. Home Care: If you are having symptoms of anemia listed above: -- Do not overexert yourself. -- Talk to your doctor before flying on an airplane or traveling to high altitudes. Follow Up with your doctor as advised by our staff. Additional blood testing may be required to determine the exact cause of your anemia. If testing was done on this visit, it may take several days to get all of the results. You may call this facility or follow up with your own doctor to get the results. Get Prompt Medical Attention if any of the following occur: -- Shortness of breath or chest pain -- Worsening of dizziness, fainting -- Vomiting blood or passing red or black-colored stool Pulmonary Nodule A pulmonary nodule is a finding on a chest x-ray. It is usually found on an x-ray taken for other reasons.It is a single lesion up to about an inch in size, surrounded by normal lung tissue. Most nodules are benign (non-cancerous). However, a nodule could be an early stage of primary lung cancer; or, it may be a sign of cancer that has spread from another part of the body (metastatic). Once a nodule is found on a chest x-ray, further testing is needed to determine if it is benign or outpatient to diagnose your nodule. Comparison of todays x-ray to prior x-rays Chest CT scan Bronchoscopy (a procedure that allows the doctor to see the air passages inside the lung) Needle biopsy Test Results: If your nodule proves to be benign, continued follow up over the next five years is usually advised. If the tests cannot tell if your nodule is benign or malignant, then, surgery may be advised. If your tests show your nodule is definitely malignant, surgery will probably be advised. The best survival rates from lung cancer occur when the primary tumor is small (less than one inch). Follow your doctor's advice regarding the timing of further testing. Prompt treatment gives the best chance for curing lung cancer. Prevention Smoking remains one of the greatest risk factors for lung cancer. If you smoke, it is essential that you quit in order to lower your risk of lung cancer. Talk to your doctor about ways to help you quit. Visit the following links for more information: www.smokefree.gov/pubs/clearing_the_air.pdf www.smokefree.gov www.quitnet.com Home Care: Most patients with a pulmonary nodule will have no symptoms. Therefore, no special home care is required.You may resume your usual activities and diet. Follow Up with your doctor or as advised by our staff. Keep your appointments for further testing. You can get more information about lung cancer from the following: [place] [employer] 601-391-5474 lung.org National Cancer [place] [phone] www.cancer.gov Return Promptly or contact your doctor if any of the following occur: Fever of 100.4F (38C) or higher, or as directed by your healthcare provider Coughing up blood Chest pain or shortness of breath Unintended weight change How To Quit Smoking Smoking is one of the hardest habits to break. About half of all those who have ever smoked have been able to quit, and most of those (about 70%) who still smoke want to quit. Here are some of the best ways to stop smoking. Keep Trying: It takes most smokers about 8 tries before they are finally able to fully quit. So, the more often you try and fail, the better your chance of quitting the next time! So, don't give up! Go Cold [place]: Most ex-smokers quit cold turkey. Trying to cut back gradually doesn't seem to work as well, perhaps because it continues the smoking habit. Also, it is possible to fool yourself by inhaling more while smoking fewer cigarettes. This results in the same amount of nicotine in your body! Get Support: Support programs can make an important difference, especially for the heavy smoker. These groups offer lectures, methods to change your behavior and peer support. Call the free national Quitline for more information. 168-FCJL-MDT (787-795-6514). Low-cost or free programs are offered by many hospitals, local chapters of the [place] [employer] (515-640-8981) and the [place] [employer] (124-938-6041). Support at home is important too. Non-smokers can help by offering praise and encouragement. If the smoker fails to quit, encourage them to try again! Mxdi-[id number]-[id number] Medicines: For those who can't quit on their own, Nicotine Replacement Therapy (NRT) may make quitting much easier. Certain aids such as the nicotine patch, gum and lozenge are available without a prescription. However, it is best to use these under the guidance of your doctor. The skin patch provides a steady supply of nicotine to the body. Nicotine gum and lozenge gives temporary bursts of low levels of nicotine. Both methods take the edge off the craving for cigarettes. WARNING: If you feel symptoms of nicotine overdose, such as nausea, vomiting, dizziness, weakness, or fast heartbeat, stop using these and see your doctor. Prescription Medicines: After evaluating your smoking patterns and prior attempts at quitting, your doctor may offer a prescription medicine such as bupropion (Zyban, Wellbutrin), varenicline (Chantix, Champix), a niocotine inhaler or nasal spray. Each has its unique advantage and side effects which your doctor can review with you. Health Benefits Of Quitting: The benefits of quitting start right away and keep improving the longer you go without smokin minutes: blood pressure and pulse return to normal 8 hours: oxygen levels return to normal 2 days: ability to smell and taste begins to improve as damaged nerves start to regrow 2-3 weeks: circulation and lung function improves 1-9 months: decreased cough, congestion and shortness of breath; less tired 1 year: risk of heart attack decreases by half 5 years: risk of lung cancer decreases by half; risk of stroke becomes the same as a non-smoker For information about how to quit smoking, visit the following links: National Cancer [place] , Clearing the Air, Quit Smoking Today - an online booklet. http://www.smokefree.gov/pubs/clearing_the_air.pdf Smokefree.gov http://smokefree.gov/ QuitNet http://www.quitnet.com/ Amlodipine Besylate Oral tablet What is this medicine? AMLODIPINE (am DEJAH di peen) is a calcium-channel ariel. It affects the amount of calcium found in your heart and muscle cells. This relaxes your blood vessels, which can reduce the amount of work the heart has to do. This medicine is used to lower high blood pressure. It is also used to prevent chest pain. How should I use this medicine? Take this medicine by mouth with a glass of water. Follow the directions on the prescription label. Take your medicine at regular intervals. Do not take more medicine than directed. Talk to your incident handler regarding the use of this medicine in children. Special care may be needed. This medicine has been used in children as young as 6. Persons over 65 years old may have a stronger reaction to this medicine and need smaller doses. What side effects may I notice from receiving this medicine? Side effects that you should report to your doctor or health child care education coordinator as soon as possible: allergic reactions like skin rash, itching or hives, swelling of the face, lips, or tongue breathing problems changes in vision or hearing chest pain fast, irregular heartbeat swelling of legs or ankles Side effects that usually do not require medical attention (report to your doctor or health child care education coordinator if they continue or are bothersome): dry mouth facial flushing nausea, vomiting stomach gas, pain tired, weak trouble sleeping What may interact with this medicine? herbal or dietary supplements local or general anesthetics medicines for high blood pressure medicines for prostate problems rifampin What if I miss a dose? If you miss a dose, take it as soon as you can. If it is almost time for your next dose, take only that dose. Do not take double or extra doses. Where should I keep my medicine? Keep out of the reach of children. Store at room temperature between 59 and 86 degrees F (15 and 30 degrees C). Protect from light. Keep container tightly closed. Throw away any unused medicine after the expiration date. What should I tell my health care provider before I take this medicine? They need to know if you have any of these conditions: heart problems like heart failure or aortic stenosis liver disease an unusual or allergic reaction to amlodipine, other medicines, foods, dyes, or preservatives or trying to get breast-feeding What should I watch for while using this medicine? Visit your doctor or health child care education coordinator for regular check ups. Check your blood pressure and pulse rate regularly. Ask your health child care education coordinator what your blood pressure and pulse rate should be, and when you should contact him or her. This medicine may make you feel confused, dizzy or lightheaded. Do not drive, use machinery, or do anything that needs mental alertness until you know how this medicine affects you. To reduce the risk of dizzy or fainting spells, do not sit or stand up quickly, especially if you are an older patient. Avoid alcoholic drinks; they can make you more dizzy. Do not suddenly stop taking amlodipine. Ask your doctor or health child care education coordinator how you can gradually reduce the dose. Digoxin Oral tablet What is this medicine? DIGOXIN (di JOX in) is used to treat congestive heart failure and heart rhythm problems. How should I use this medicine? Take this medicine by mouth with a glass of water. Follow the directions on the prescription label. Take your doses at regular intervals. Do not take your medicine more often than directed. Talk to your incident handler regarding the use of this medicine in children. Special care may be needed. What side effects may I notice from receiving this medicine? Side effects that you should report to your doctor or health child care education coordinator as soon as possible: allergic reactions like skin rash, itching or hives, swelling of the face, lips, or tongue changes in behavior, mood, or mental ability changes in vision confusion fast, irregular heartbeat feeling faint or lightheaded, falls headache nausea, vomiting unusual bleeding, bruising unusually weak or tired Side effects that usually do not require medical attention (report to your doctor or health child care education coordinator if they continue or are bothersome): breast enlargement in men and women diarrhea What may interact with this medicine? -activated charcoal -albuterol -alprazolam -antacids -antiviral medicines for HIV or AIDS like ritonavir and saquinavir -calcium -certain antibiotics like azithromycin, clarithromycin, erythromycin, gentamicin, neomycin, trimethoprim, and tetracycline -certain medicines for blood pressure, heart disease, irregular heart beat -certain medicines for cancer -certain medicines for cholesterol like atorvastatin, cholestyramine, and colestipol -certain medicines for diabetes, like acarbose, exenatide, miglitol, and metformin -certain medicines for fungal infections like ketoconazole and itraconazole -certain medicines for stomach problems like omeprazole, esomeprazole, lansoprazole, rabeprazole, metoclopramide, and sucralfate -cyclosporine -diphenoxylate -epinephrine -kaolin; pectin -nefazodone -NSAIDS, medicines for pain and inflammation, like celecoxib, ibuprofen, or naproxen -penicillamine -phenytoin -propantheline -quinine -phenytoin -rifampin -succinylcholine -Genoveva's Wort -sulfasalazine -teriparatide -thyroid hormones -tolvaptan What if I miss a dose? If you miss a dose, take it as soon as you can. If it is almost time for your next dose, take only that dose. Do not take double or extra doses. Where should I keep my medicine? Keep out of the reach of children. Store at room temperature between 15 and 30 degrees C (59 and 86 degrees F). Protect from light and moisture. Throw away any unused medicine after the expiration date. What should I tell my health care provider before I take this medicine? They need to know if you have any of these conditions: certain heart rhythm disorders heart disease or recent heart attack kidney or liver disease an unusual or allergic reaction to digoxin, other medicines, foods, dyes, or preservatives or trying to get breast-feeding What should I watch for while using this medicine? Visit your doctor or health child care education coordinator for regular checks on your progress. Do not stop taking this medicine without the advice of your doctor or health child care education coordinator, even if you feel better. Do not change the brand you are taking, other brands may affect you differently. Check your heart rate and blood pressure regularly while you are taking this medicine. Ask your doctor or health child care education coordinator what your heart rate and blood pressure should be, and when you should contact him or her. Your doctor or health child care education coordinator also may schedule regular blood tests and electrocardiograms to check your progress. Watch your diet. Less digoxin may be absorbed from the stomach if you have a diet high in bran fiber. Do not treat yourself for coughs, colds or allergies without asking your doctor or health child care education coordinator for advice. Some ingredients can increase possible side effects. Diltiazem Hydrochloride Oral tablet What is this medicine? DILTIAZEM (dil MARTIN a zem) is a calcium-channel ariel. It affects the amount of calcium found in your heart and muscle cells. This relaxes your blood vessels, which can reduce the amount of work the heart has to do. This medicine is used to treat chest pain caused by angina. How should I use this medicine? Take this medicine by mouth with a glass of water. Follow the directions on the prescription label. This medicine is usually taken before meals and at bedtime. Take your doses at regular intervals. Do not take your medicine more often then directed. Do not stop taking except on the advice of your doctor or health child care education coordinator. Talk to your incident handler regarding the use of this medicine in children. Special care may be needed. What side effects may I notice from receiving this medicine? Side effects that you should report to your doctor or health child care education coordinator as soon as possible: allergic reactions like skin rash, itching or hives, swelling of the face, lips, or tongue confusion, mental depression feeling faint or lightheaded, falls pinpoint red spots on the skin redness, blistering, peeling or loosening of the skin, including inside the mouth slow, irregular heartbeat swelling of the ankles, feet unusual bleeding or bruising Side effects that usually do not require medical attention (report to your doctor or health child care education coordinator if they continue or are bothersome): change in sex drive or performance constipation or diarrhea flushing of the face headache nausea, vomiting tired or weak trouble sleeping What may interact with this medicine? Do not take this medicine with any of the following: cisapride hawthorn pimozide ranolazine red yeast rice This medicine may also interact with the following medications: buspirone carbamazepine cimetidine cyclosporine digoxin local anesthetics or general anesthetics lovastatin medicines for anxiety or difficulty sleeping like midazolam and triazolam medicines for high blood pressure or heart problems quinidine rifampin, rifabutin, or rifapentine What if I miss a dose? If you miss a dose, take it as soon as you can. If it is almost time for your next dose, take only that dose. Do not take double or extra doses. Where should I keep my medicine? Keep out of the reach of children. Store at room temperature between 20 and 25 degrees C (68 and 77 degrees F). Protect from light. Keep container tightly closed. Throw away any unused medicine after the expiration date. What should I tell my health care provider before I take this medicine? They need to know if you have any of these conditions: heart problems, low blood pressure, irregular heartbeat liver disease previous heart attack an unusual or allergic reaction to diltiazem, other medicines, foods, dyes, or preservatives or trying to get breast-feeding What should I watch for while using this medicine? Check your blood pressure and pulse rate regularly. Ask your doctor or health child care education coordinator what your blood pressure and pulse rate should be and when you should contact him or her. You may feel dizzy or lightheaded. Do not drive, use machinery, or do anything that needs mental alertness until you know how this medicine affects you. To reduce the risk of dizzy or fainting spells, do not sit or stand up quickly, especially if you are an older patient. Alcohol can make you more dizzy or increase flushing and rapid heartbeats. Avoid alcoholic drinks. You have been given the following additional information: Heart Failure, General Drug Abuse Marijuana Abuse Anemia, Type Not Specified (Adult) Pulmonary Nodule, Solitary Smoking Cessation Amlodipine Besylate Oral tablet Digoxin Oral tablet Diltiazem Hydrochloride Oral tablet (Electronically signed by Jack Murray DO 12/10/2016 19:38)
--- NOTE | 2016-12-10 19:38 | ED DISCHARGE INSTRUCTIONS ---
Patient: ADONIS DENNIS General Instructions [facility] VisitID: [id number] [place] [address] 61y, M Registration Date/Time: 12/10/2016 Acute mild left ventricular congestive heart failure New onset atrial fibrillation with uncontrolled rate. Pulmonary nodule right upper lobe and right lower lobe. Chronic substance abuse- tobacco (cigarettes), marijuana, methamphetamines with anxiety. Moderate chronic anemia. INSTRUCTIONS Do not smoke. Seek medical help to quit smoking. Warnings: Further evaluation is necessary in order to recheck abnormal lab, obtain test results, conduct further tests and assess the possibility of serious illness (YOU WILL NEED A REPEAT / FOLLOW UP CHEST CT SCAN IN ABOUT 3 MONTHS TO FOLLOW LUNG NODULES). It is very important to follow up with a physician. GENERAL WARNINGS: Return or contact your physician immediately if your condition worsens or changes unexpectedly, if not improving as expected, or if other problems arise. SPECIFICALLY, return if you develop chest pain, difficulty breathing, excessive fatigue or a fluttering sensation in the chest. Your Current Medications: CONTINUE TAKING THE FOLLOWING MEDICATIONS: Flomax Oral. Gabapentin Oral. Ibuprofen Oral. Prescription Medications: Norvasc 5 mg: Take 1 orally every 24 hours. Dispense fifteen (15). No refills. Substitution is permissible. Digoxin 0.25 mg: Take 1 tab orally every 24 hours. Dispense fifteen (15). No refills. Diltiazem 120 mg: Take 1 orally every 24 hours. Dispense fifteen (15). No refills. Xeralto 20 mg Disp #15 sig 1 po QD. Follow-up: Follow up with your doctor in about two hours. AMA warnings: Oriented to person, place, and time. Gives appropriate answers and rational explanation of refusal of care. Speaks coherently. No signs of psychosis, auditory hallucinations, delusional thinking, suicidal ideations or slurred speech. No tangential thinking, visual hallucinations or homicidal ideations. Abstract thinking intact. Clinical Impression: the patient has the capacity to make decisions regarding the medical care offered. The suspected diagnosis, based upon the initiated medical screening exam, is Congestive heart failure, COPD and new onset atrial fibrillation - possible other problems that need to be further worked up to rule in or out and has been discussed with the patient. Acknowledges understanding of the reasons for recommendations regarding medical treatment, medical tests, admission to facility and further observation. The recommended medical care being refused is Admission for further work up and observation and has been discussed with the patient. The risks of refusing recommended care that were disclosed are and permanent mental impairment. Discharge instructions were provided. REFUSAL OF CARE STATEMENT (patient to review and sign in discharge instructions): I have read this paragraph. I understand that a doctor at this hospital wants to give me certain medical care. The doctor explained that care to me, and I understand what that care is. The doctor also explained to me what could happen to me if I leave here without having that care, and I understand what he said. I know that I am welcome to return to this hospital at any time to receive the recommended care or any other care that I may need at any time, regardless of my ability to pay for such care. ADDITIONAL INFORMATION Heart Failure (Left Or Right Sided) The heart is a large muscle that pumps blood throughout the body. Blood carries oxygen to all the organs, muscles, and skin of your body. After the body takes the oxygen out of the blood, the blood returns to the heart. The right side of the heart collects that blood and pumps it to the lungs to receive fresh oxygen. This oxygen-rich blood from the lungs then returns to the left side of the heart where it is pumped back out to the rest of the body, starting the process all over. Heart Failure (HF) occurs when the heart muscle is weakened. This affects the pumping action of the heart. When the right side of the heart is weakened, it cant handle the blood it is receiving from the rest of the body. This blood returns to the heart through veins. When too much pressure builds up in the veins fluid leaks out into the tissues. Wells then causes that fluid to spread to those parts of the body that are the lowest. Therefore, one of the first symptoms of HF include swelling in the feet and ankles. If the condition worsens, the swelling can even go up past the knees. When the left side of the heart is weakened, it cant handle the blood it is receiving from the lungs. Pressure then builds up in the veins of the lungs, causing fluid to leakinto the lung tissues. This may be referred to as congestive heart failure.This causes you to feel short of breath, weak, or dizzy. These symptoms are often worse with exertion, such as climbing stairs or walking up hills. Lying flat is uncomfortable and can make your breathing worse. This may make sleeping difficult and force you to useextra pillows to sleep well. This condition may not only affect the right side of the heart or only the left side. While it may have started on one side, it often affects both sides. Causes of heart failure Coronary artery disease Prior heart attack (also known as acute myocardial infarction, or AMI) High blood pressure Damaged heart valve Diabetes Obesity Cigarette smoking Alcohol abuse Treatment Heart failure is a chronic condition. There is no cure. The purpose of medical treatment is to improve the pumping action of the heart, and remove excess water from the body. A number of medications can help achieve this goal,improvesymptoms and prevent the heart from becoming weaker. Another major goal is to better treat the caues of heart failure, such as diabetes, high blood pressure, and your lifestyle. Home care Check your weight every day. A sudden increase in weight gain could mean worsening heart failure. Use the same scale every day Weigh yourself at the same time every day Make sure the scale is on the floor, not on a rug Keep a record of your weight every day, so your doctor can see it. If you are not given a log sheet for this, keep a separate journal for this purpose. Reduce your salt (sodium) intake. Avoid high-salt foods (olives, pickles, smoked meats, salted potato chips, etc.). Do not add salt to your food at the table and use only small amounts of salt when cooking. Follow your doctors recommendations about how much fluid intake is safe. Stop smoking. Reduce alcohol use. Lose weight if you are overweight. The excess weight adds a lot of stress on the workload of the heart. Stay active. Talk to your doctor about an exercise program that is safe for your heart. Keep your feet elevated to reduce swelling. Ask your doctor about support hose as a preventive treatment for daytime leg swelling. Besides taking your medicine as instructed, an important part of treatment includes lifestyle changes such as diet, physical activity, stopping smoking, and weight control. Improve your diet. Often in the hospital, people are given a "heart healthy diet." This includes more fresh foods, lower fat, less processed foots, and lower salt. Follow-up care Follow up with your doctor as directed by our staff. Make sure to keep any appointments that were made for you as this can help better control heart failure. If an X-ray was done, you will be notified of any new findings that may affect your care. Call 911 Call 911 if you: Become severely short of breath Feel lightheaded, or feel like you might pass out or faint Have chest pain or discomfort that is different than usual, the medicines your doctor told you to use for this do not help, or the pain lasts longer than 10 to 15 minutes Suddendly develop a rapid heart rate When to seek medical care Get prompt medical attention if you have any of the following signs of worsening heart failure: Sudden weight gain (3or more pounds in one day or5or more pounds in one week) Trouble breathing not related to being active New or increased swelling of your legs or ankles Swelling or pain in your abdomen Breathing trouble at night (waking up short of breath, needing more pillows to breathe) Frequent coughing that doesnt go away Feeling much more tired than usual Drug Abuse Use and abuse of such drugs as marijuana, amphetamines (speed, crank), cocaine, heroin or prescription pain medicines (Vicodin, codeine), sedatives and sleeping pills (Valium, Klonopin), PCP, mescaline and LSD may lead to addiction or dependence. Once this occurs, you are at greater risk for any of the following: Craving for the drug and unable to stop using the drug even though you think you want to stop (psychological dependence) Drug withdrawal symptoms if you stop taking the drug (physical dependence) Loss of your job or your family Arrest, conviction and chcf sentence for possession of an illegal substance or for driving under the influence of such a substance Accidental injuries to yourself or others while you are under the influence of the drug (in a car or at home). HIV infection (much greater risk if you use IV drugs) Other sexually transmitted diseases (herpes, chlamydia, gonorrhea and others) Severe and fatal infection of the heart valves (if you use IV drugs) Stroke, heart attack, hepatitis B or C, kidney failure from overdose Home Care: Admit you have a drug problem. Ask for help from your family and close friends. Seek professional help. This could be in the form of individual psychotherapy or counseling or an outpatient, inpatient, or residential drug treatment program. Join a self-help group for drug abuse. Avoid friends who abuse drugs themselves or tempt you to continue abusing drugs. Eat a balanced diet and begin a regular exercise program. Follow Up with your doctor or as advised by our staff. Contact one of the resources below for help. National Shirley on Alcoholism and Drug Dependence www.ncadd.org 367-531-KLPA Narcotics Anonymous www.na.org 990-011-3287 National Alcohol and Substance Abuse Information Center (for referral to treatment programs) www.addictionGlobal Crossing 310-119-6684 Get Prompt Medical Attention if any of the following occur: Agitation, anxiety, unable to sleep Unintended weight loss (more than 10 to 15 pounds over 3 months) Seizure Chest pain Fever of 100.4F (38C) or higher, or as directed by your healthcare provider Excess drowsiness or inability to be awakened Shortness of breath Slow breathing under 8 breaths per minute Cough with colored sputum Redness, swelling or tenderness at an injection site Marijuana Abuse Marijuana is the most widely used illegal drug in the [place]. It is called by various names such as pot, weed, blunts, grass, reefer, ganja, hash, hashish. It is usually smoked but can be mixed with foods or brewed as a tea. It is sometimes sold with PCP (Denis Dust) or amphetamine mixed in it. These drugs can cause other harmful side effects. Marijuana can cause the following effects: Changes in mood (stimulated, happy, drowsy, depressed, paranoid) Hallucinations Increased heart rate and blood pressure Increased appetite Time distortion, difficulty concentrating, impaired memory Lung damage (similar to cigarettes with chronic cough, wheezing, frequent colds and bronchitis) You can become psychologically dependent on marijuana. That means the craving to use the drug is emotional or psychological rather than due to physical withdrawal. Is Marijuana Running Your Life? Here are some of the signs: Relying on marijuana to feel good, forget problems, deal with stress or to relax Wanting to be alone most of the time or only with others who use drugs Losing interest in things that used to be important Changes in school or job performance or attendance Spending a lot of time thinking about how to get marijuana Stealing or selling your things so you can buy marijuana Unable to stop using even though you may want to quit Increasing anxiety, anger,or depression Sleeping too much, changes in eating habits (weight loss or gain) Needing to use more to get the same effect Home Care Once you have become addicted to any drug, quitting is hard to do. Most people find they can't quit without help. So, dont try to do this alone. Talk to someone you trust who can support you. Seek professional help. Avoid people and places where drugs are used. That only increases the temptation to use. Follow Up with your doctor or as advised by our staff. For more information or a referral to a treatment center in your area, contact: Your local mental health center or the National Alcohol and Substance Abuse Information Center (385)-730-8070 www.addictioncareGroupCard.BAROnova National Shirley on Alcoholism and Drug Dependence 407-043-NRLF www.ncadd.org Marijuana Anonymous 482-212-5473 www.marijuana-anonymous.org Get Prompt Medical Attention if any of the following occur: You feel extreme depression, fear, anxiety, or anger toward yourself or others You feel out of control You feel that you may try to harm yourself or another Anemia [Type Not Specified, Adult] Red blood cells carry oxygen to the tissues of the body. Anemia is a condition where the size or number of red blood cells in the body is reduced. Iron is needed to make red blood cells. The most common cause of anemia is iron deficiency. This may be due to: i) Blood loss (heavy menstrual periods or bleeding from the stomach or intestines); or, ii) Not eating enough iron-containing foods. Other causes of anemia include certain vitamin deficiencies, chronic kidney disease or certain other chronic illnesses. Anemia causes a feeling of being tired and run down. When anemia becomes severe, the skin becomes pale and there is shortness of breath with exertion. Headaches, dizziness, leg cramps with exertion, drowsiness and fatigue are other common symptoms. Home Care: If you are having symptoms of anemia listed above: -- Do not overexert yourself. -- Talk to your doctor before flying on an airplane or traveling to high altitudes. Follow Up with your doctor as advised by our staff. Additional blood testing may be required to determine the exact cause of your anemia. If testing was done on this visit, it may take several days to get all of the results. You may call this facility or follow up with your own doctor to get the results. Get Prompt Medical Attention if any of the following occur: -- Shortness of breath or chest pain -- Worsening of dizziness, fainting -- Vomiting blood or passing red or black-colored stool Pulmonary Nodule A pulmonary nodule is a finding on a chest x-ray. It is usually found on an x-ray taken for other reasons.It is a single lesion up to about an inch in size, surrounded by normal lung tissue. Most nodules are benign (non-cancerous). However, a nodule could be an early stage of primary lung cancer; or, it may be a sign of cancer that has spread from another part of the body (metastatic). Once a nodule is found on a chest x-ray, further testing is needed to determine if it is benign or outpatient to diagnose your nodule. Comparison of todays x-ray to prior x-rays Chest CT scan Bronchoscopy (a procedure that allows the doctor to see the air passages inside the lung) Needle biopsy Test Results: If your nodule proves to be benign, continued follow up over the next five years is usually advised. If the tests cannot tell if your nodule is benign or malignant, then, surgery may be advised. If your tests show your nodule is definitely malignant, surgery will probably be advised. The best survival rates from lung cancer occur when the primary tumor is small (less than one inch). Follow your doctor's advice regarding the timing of further testing. Prompt treatment gives the best chance for curing lung cancer. Prevention Smoking remains one of the greatest risk factors for lung cancer. If you smoke, it is essential that you quit in order to lower your risk of lung cancer. Talk to your doctor about ways to help you quit. Visit the following links for more information: www.smokefree.gov/pubs/clearing_the_air.pdf www.smokefree.gov www.quitnet.com Home Care: Most patients with a pulmonary nodule will have no symptoms. Therefore, no special home care is required.You may resume your usual activities and diet. Follow Up with your doctor or as advised by our staff. Keep your appointments for further testing. You can get more information about lung cancer from the following: [employer] Association 451-590-9194 lung.org National Cancer [place] 532-343-0737 www.cancer.gov Return Promptly or contact your doctor if any of the following occur: Fever of 100.4F (38C) or higher, or as directed by your healthcare provider Coughing up blood Chest pain or shortness of breath Unintended weight change How To Quit Smoking Smoking is one of the hardest habits to break. About half of all those who have ever smoked have been able to quit, and most of those (about 70%) who still smoke want to quit. Here are some of the best ways to stop smoking. Keep Trying: It takes most smokers about 8 tries before they are finally able to fully quit. So, the more often you try and fail, the better your chance of quitting the next time! So, don't give up! Go Cold Virgil: Most ex-smokers quit cold turkey. Trying to cut back gradually doesn't seem to work as well, perhaps because it continues the smoking habit. Also, it is possible to fool yourself by inhaling more while smoking fewer cigarettes. This results in the same amount of nicotine in your body! Get Support: Support programs can make an important difference, especially for the heavy smoker. These groups offer lectures, methods to change your behavior and peer support. Call the free national Quitline for more information. 119-ADQR-SNM (843-079-4316). Low-cost or free programs are offered by many hospitals, local chapters of the [employer] Lung Association (338-531-2261) and the [employer] Society (856-210-5621). Support at home is important too. Non-smokers can help by offering praise and encouragement. If the smoker fails to quit, encourage them to try again! Bdvu-Llo-[id number] Medicines: For those who can't quit on their own, Nicotine Replacement Therapy (NRT) may make quitting much easier. Certain aids such as the nicotine patch, gum and lozenge are available without a prescription. However, it is best to use these under the guidance of your doctor. The skin patch provides a steady supply of nicotine to the body. Nicotine gum and lozenge gives temporary bursts of low levels of nicotine. Both methods take the edge off the craving for cigarettes. WARNING: If you feel symptoms of nicotine overdose, such as nausea, vomiting, dizziness, weakness, or fast heartbeat, stop using these and see your doctor. Prescription Medicines: After evaluating your smoking patterns and prior attempts at quitting, your doctor may offer a prescription medicine such as bupropion (Zyban, Wellbutrin), varenicline (Chantix, Champix), a niocotine inhaler or nasal spray. Each has its unique advantage and side effects which your doctor can review with you. Health Benefits Of Quitting: The benefits of quitting start right away and keep improving the longer you go without smokin minutes: blood pressure and pulse return to normal 8 hours: oxygen levels return to normal 2 days: ability to smell and taste begins to improve as damaged nerves start to regrow 2-3 weeks: circulation and lung function improves 1-9 months: decreased cough, congestion and shortness of breath; less tired 1 year: risk of heart attack decreases by half 5 years: risk of lung cancer decreases by half; risk of stroke becomes the same as a non-smoker For information about how to quit smoking, visit the following links: National Cancer [place] , Clearing the Air, Quit Smoking Today - an online booklet. http://www.smokefree.gov/pubs/clearing_the_air.pdf Smokefree.gov http://smokefree.gov/ QuitNet http://www.quitnet.com/ Amlodipine Besylate Oral tablet What is this medicine? AMLODIPINE (am DEJAH di peen) is a calcium-channel ariel. It affects the amount of calcium found in your heart and muscle cells. This relaxes your blood vessels, which can reduce the amount of work the heart has to do. This medicine is used to lower high blood pressure. It is also used to prevent chest pain. How should I use this medicine? Take this medicine by mouth with a glass of water. Follow the directions on the prescription label. Take your medicine at regular intervals. Do not take more medicine than directed. Talk to your mason apprentice regarding the use of this medicine in children. Special care may be needed. This medicine has been used in children as young as 6. Persons over 65 years old may have a stronger reaction to this medicine and need smaller doses. What side effects may I notice from receiving this medicine? Side effects that you should report to your doctor or health medication care manager as soon as possible: allergic reactions like skin rash, itching or hives, swelling of the face, lips, or tongue breathing problems changes in vision or hearing chest pain fast, irregular heartbeat swelling of legs or ankles Side effects that usually do not require medical attention (report to your doctor or health medication care manager if they continue or are bothersome): dry mouth facial flushing nausea, vomiting stomach gas, pain tired, weak trouble sleeping What may interact with this medicine? herbal or dietary supplements local or general anesthetics medicines for high blood pressure medicines for prostate problems rifampin What if I miss a dose? If you miss a dose, take it as soon as you can. If it is almost time for your next dose, take only that dose. Do not take double or extra doses. Where should I keep my medicine? Keep out of the reach of children. Store at room temperature between 59 and 86 degrees F (15 and 30 degrees C). Protect from light. Keep container tightly closed. Throw away any unused medicine after the expiration date. What should I tell my health care provider before I take this medicine? They need to know if you have any of these conditions: heart problems like heart failure or aortic stenosis liver disease an unusual or allergic reaction to amlodipine, other medicines, foods, dyes, or preservatives or trying to get breast-feeding What should I watch for while using this medicine? Visit your doctor or health medication care manager for regular check ups. Check your blood pressure and pulse rate regularly. Ask your health medication care manager what your blood pressure and pulse rate should be, and when you should contact him or her. This medicine may make you feel confused, dizzy or lightheaded. Do not drive, use machinery, or do anything that needs mental alertness until you know how this medicine affects you. To reduce the risk of dizzy or fainting spells, do not sit or stand up quickly, especially if you are an older patient. Avoid alcoholic drinks; they can make you more dizzy. Do not suddenly stop taking amlodipine. Ask your doctor or health medication care manager how you can gradually reduce the dose. Digoxin Oral tablet What is this medicine? DIGOXIN (di JOX in) is used to treat congestive heart failure and heart rhythm problems. How should I use this medicine? Take this medicine by mouth with a glass of water. Follow the directions on the prescription label. Take your doses at regular intervals. Do not take your medicine more often than directed. Talk to your mason apprentice regarding the use of this medicine in children. Special care may be needed. What side effects may I notice from receiving this medicine? Side effects that you should report to your doctor or health medication care manager as soon as possible: allergic reactions like skin rash, itching or hives, swelling of the face, lips, or tongue changes in behavior, mood, or mental ability changes in vision confusion fast, irregular heartbeat feeling faint or lightheaded, falls headache nausea, vomiting unusual bleeding, bruising unusually weak or tired Side effects that usually do not require medical attention (report to your doctor or health medication care manager if they continue or are bothersome): breast enlargement in men and women diarrhea What may interact with this medicine? -activated charcoal -albuterol -alprazolam -antacids -antiviral medicines for HIV or AIDS like ritonavir and saquinavir -calcium -certain antibiotics like azithromycin, clarithromycin, erythromycin, gentamicin, neomycin, trimethoprim, and tetracycline -certain medicines for blood pressure, heart disease, irregular heart beat -certain medicines for cancer -certain medicines for cholesterol like atorvastatin, cholestyramine, and colestipol -certain medicines for diabetes, like acarbose, exenatide, miglitol, and metformin -certain medicines for fungal infections like ketoconazole and itraconazole -certain medicines for stomach problems like omeprazole, esomeprazole, lansoprazole, rabeprazole, metoclopramide, and sucralfate -cyclosporine -diphenoxylate -epinephrine -kaolin; pectin -nefazodone -NSAIDS, medicines for pain and inflammation, like celecoxib, ibuprofen, or naproxen -penicillamine -phenytoin -propantheline -quinine -phenytoin -rifampin -succinylcholine -Genoveva's Wort -sulfasalazine -teriparatide -thyroid hormones -tolvaptan What if I miss a dose? If you miss a dose, take it as soon as you can. If it is almost time for your next dose, take only that dose. Do not take double or extra doses. Where should I keep my medicine? Keep out of the reach of children. Store at room temperature between 15 and 30 degrees C (59 and 86 degrees F). Protect from light and moisture. Throw away any unused medicine after the expiration date. What should I tell my health care provider before I take this medicine? They need to know if you have any of these conditions: certain heart rhythm disorders heart disease or recent heart attack kidney or liver disease an unusual or allergic reaction to digoxin, other medicines, foods, dyes, or preservatives or trying to get breast-feeding What should I watch for while using this medicine? Visit your doctor or health medication care manager for regular checks on your progress. Do not stop taking this medicine without the advice of your doctor or health medication care manager, even if you feel better. Do not change the brand you are taking, other brands may affect you differently. Check your heart rate and blood pressure regularly while you are taking this medicine. Ask your doctor or health medication care manager what your heart rate and blood pressure should be, and when you should contact him or her. Your doctor or health medication care manager also may schedule regular blood tests and electrocardiograms to check your progress. Watch your diet. Less digoxin may be absorbed from the stomach if you have a diet high in bran fiber. Do not treat yourself for coughs, colds or allergies without asking your doctor or health medication care manager for advice. Some ingredients can increase possible side effects. Diltiazem Hydrochloride Oral tablet What is this medicine? DILTIAZEM (dil MARTIN a zem) is a calcium-channel ariel. It affects the amount of calcium found in your heart and muscle cells. This relaxes your blood vessels, which can reduce the amount of work the heart has to do. This medicine is used to treat chest pain caused by angina. How should I use this medicine? Take this medicine by mouth with a glass of water. Follow the directions on the prescription label. This medicine is usually taken before meals and at bedtime. Take your doses at regular intervals. Do not take your medicine more often then directed. Do not stop taking except on the advice of your doctor or health medication care manager. Talk to your mason apprentice regarding the use of this medicine in children. Special care may be needed. What side effects may I notice from receiving this medicine? Side effects that you should report to your doctor or health medication care manager as soon as possible: allergic reactions like skin rash, itching or hives, swelling of the face, lips, or tongue confusion, mental depression feeling faint or lightheaded, falls pinpoint red spots on the skin redness, blistering, peeling or loosening of the skin, including inside the mouth slow, irregular heartbeat swelling of the ankles, feet unusual bleeding or bruising Side effects that usually do not require medical attention (report to your doctor or health medication care manager if they continue or are bothersome): change in sex drive or performance constipation or diarrhea flushing of the face headache nausea, vomiting tired or weak trouble sleeping What may interact with this medicine? Do not take this medicine with any of the following: cisapride hawthorn pimozide ranolazine red yeast rice This medicine may also interact with the following medications: buspirone carbamazepine cimetidine cyclosporine digoxin local anesthetics or general anesthetics lovastatin medicines for anxiety or difficulty sleeping like midazolam and triazolam medicines for high blood pressure or heart problems quinidine rifampin, rifabutin, or rifapentine What if I miss a dose? If you miss a dose, take it as soon as you can. If it is almost time for your next dose, take only that dose. Do not take double or extra doses. Where should I keep my medicine? Keep out of the reach of children. Store at room temperature between 20 and 25 degrees C (68 and 77 degrees F). Protect from light. Keep container tightly closed. Throw away any unused medicine after the expiration date. What should I tell my health care provider before I take this medicine? They need to know if you have any of these conditions: heart problems, low blood pressure, irregular heartbeat liver disease previous heart attack an unusual or allergic reaction to diltiazem, other medicines, foods, dyes, or preservatives or trying to get breast-feeding What should I watch for while using this medicine? Check your blood pressure and pulse rate regularly. Ask your doctor or health medication care manager what your blood pressure and pulse rate should be and when you should contact him or her. You may feel dizzy or lightheaded. Do not drive, use machinery, or do anything that needs mental alertness until you know how this medicine affects you. To reduce the risk of dizzy or fainting spells, do not sit or stand up quickly, especially if you are an older patient. Alcohol can make you more dizzy or increase flushing and rapid heartbeats. Avoid alcoholic drinks. You have been given the following additional information: Heart Failure, General Drug Abuse Marijuana Abuse Anemia, Type Not Specified (Adult) Pulmonary Nodule, Solitary Smoking Cessation Amlodipine Besylate Oral tablet Digoxin Oral tablet Diltiazem Hydrochloride Oral tablet (Electronically signed by Jack Murray DO 12/10/2016 19:38)
--- NOTE | 2016-12-10 19:38 | ED MAR SUMMARY ---
..... Medication Administration Record [facility] [address] [place] [address] Patient: ADONIS DENNIS Visit ID: [id number] 61y, M Weight: 99.7 kg Height/Length: 69 in BMI: 32.5 ALLERGIES: Unknown ABX Start 14:54 12/10/2016 Hoang Banerjee R.N., Stop 17:15 12/10/2016 Hoang Banerjee R.N. Medication Administered: IV NS (SALINE), Dose: IV Fluids over 2 hour(s), Rate: 250 mL/hr, Bolus: 500 mL over 30 minute(s), Dispensed: 1000 mL bag, Site: #1 left AC. Medication Ordered: IV NS : initial bolus 500 mL (1000 mL/hr), then 250 mL/hr for X2 (NOW). Given 16:00 12/10/2016 Hoang Banerjee R.N. Medication Administered: LOVENOX [SUBCUTANEOUS] (ENOXAPARIN SODIUM), Dose: 100 mg Subcutaneous. Medication Ordered: Lovenox Subcut 100 mg (NOW). Given 16:00 12/10/2016 Hoang Banerjee R.N. Medication Administered: NITROGLYCERIN PASTE [TOPICAL], Dose: 1.5 in. Paste Topical. Medication Ordered: NitroGLYCERIN Paste Topical 1.5 in. (NOW, to CW). Given 16:00 12/10/2016 Hoang Banerjee R.N. Medication Administered: NITROGLYCERIN [SL], Dose: 0.4 mg Tablets SL. Medication Ordered: NitroGLYCERIN SL 0.4 mg (NOW, w/ s/s CHF). Given 16:01 12/10/2016 Hoang Banerjee R.N. Medication Administered: DILTIAZEM [IVP], Dose: 10 mg IVP over 2 minute(s), Site: #1 left AC. Medication Ordered: Diltiazem IV 10 mg (NOW). Given 16:04 12/10/2016 Hoang Banerjee R.N. Medication Administered: LANOXIN [IVP], Dose: 0.125 mg IVP over 2 minute(s), Site: #1 left AC. Medication Ordered: Lanoxin IV 0.125 mg (NOW). Given 16:35 12/10/2016 Hoang Banerjee R.N. Medication Administered: DILTIAZEM [IVP], Dose: 10 mg IVP over 2 minute(s), Site: #1 left AC. Medication Ordered: Diltiazem IV 10 mg (NOW).
== END 2016-12-10 17:18 | disposition home or self-care (01) ==
LOC: ED SRH 14:29
DX: I50.1 Left ventricular failure, unspecified (principal); I48.91 Unspecified atrial fibrillation; R91.1 Solitary pulmonary nodule; D64.9 Anemia, unspecified; F12.10 Cannabis abuse, uncomplicated; F15.180 Other stimulant abuse with stimulant-induced anxiety disorder; F17.210 Nicotine dependence, cigarettes, uncomplicated; J44.9 Chronic obstructive pulmonary disease, unspecified; Z79.899 Other long term (current) drug therapy; Z79.1 Long term (current) use of non-steroidal anti-inflammatories (NSAID)
CPT/HCPCS: 90004; 90100; 90616; 90617; 91320; 91556; 92010; 92235; 92610; 92720; 92760; 92761; 92762; 92763; 92764; 92765; 92766; 92767; 93140; 94060; 95059